=== PATIENT | female | born 1995 | race Hispanic/Latino ===

== ENCOUNTER 2023-12-03 03:32 | Emergency (ER) | payer SELFPAY ==
[2023-12-03] MEDS ORDERED: DIPHENHYDRAMINE 50 MG/ML VIAL ONE (03:46)
[2023-12-03] MEDS ORDERED: METOCLOPRAMIDE 10 MG/2mL INJ ONE (03:46)
[2023-12-03] MEDS ORDERED: ACETAMINOPHEN 500 MG TAB ONE (03:46)
[2023-12-03] MEDS ORDERED: NA CHLORIDE 0.9% 1,000 ML ONE (03:46)
[2023-12-03 04:25] LABS: Absolute Eosinophils 0.1 K/uL (0-0.5); Absolute Lymphocytes (CBC) 3.8 K/uL (0.7-4.9); Absolute Monocytes 0.9 K/uL (0.1-1.3); Absolute Neutrophil 8.5 K/uL (1.8-8.0); Basophils % 0.2 % (0-1.3); Eosinophils % 0.8 % (0-4.4); Hematocrit 41.4 % (36.0-45.0); Hemoglobin 13.6 g/dL (12.0-15.0); Lymphocytes % 28.5 % (15.3-44.8); MCH 28.3 pg (27.0-35.0); MCHC 32.8 g/dL (32.0-36.0); MCV 86.4 fL (80-100); Monocytes % 7.1 % (3.3-12.3); Neutrophils % 63.4 % (41.7-73.7); Platelets 413 thou/uL (152-406); RBC Red Blood Cell Count 4.79 M/uL (3.86-4.86); Red Cell Distribution Width 13.8 % (12.1-15.2)
[2023-12-03 04:58] LABS: Albumin 4.1 g/dL (3.4-5.0); Alkaline Phosphatase 80 U/L (45-117); Anion Gap 11.2 mEq/L (5.0-15.0); BUN Blood Urea Nitrogen 13 mg/dL (7-18); Bicarbonate 21 mEq/L (21-32); Bilirubin Total 0.3 mg/dL (0.2-1.0); Creatine Phosphokinase 61 U/L (26-192); Globulin 4.3 g/dL (2.3-3.5); Glomerular Filtration Rate 103 ml/min (=/>90); Glucose Level 149 mg/dL (74-106); Potassium 3.2 mEq/L (3.5-5.1); Protein, Total 8.4 g/dL (6.4-8.2); Sodium Level 136 mEq/L (136-145); Troponin High Sensitivity 3.7 pg/mL (<58.9)
[2023-12-03 05:01] LABS: ALT/SGPT < 14 U/L (13-56); AST/SGOT < 10 U/L (15-37); Bilirubin Direct < 0.2 mg/dL (0-0.2); Bilirubin Indirect, Calculated 0.1 mg/dL (0.2-0.8)
--- NOTE | 2023-12-03 05:07 | EDPHYS ---
Physician Documentation [facility] Name: Rhoda Richards Age: 28 yrs Sex: Female : 1995 Arrival Date: 12/03/2023 Time: 03:32 Bed 6 Private MD: ED Physician Sandeep Radford HPI: 12/02 03:53 This 28 yrs old Female presents to ER via EMS with complaints of Palpitations, rt Headache, Chest Pain. 03:53 Patient presents to the ED with reported 2 hours of a fast heart rate. The patient rt states that she feels dizzy, reports a migraine to the left side of her head. She does have history of migraines. Denies chest pain, difficulty breathing. Denies other acute complaints, symptoms are moderate in severity, no other aggravating or alleviating factors.. 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 Flu vaccine is not up to date. - Infectious Disease History:: Denies. - Social history:: Smoking status: Patient denies any tobacco usage or history of. Patient/guardian denies using alcohol, street drugs. - Family history:: not pertinent. ROS: 03:53 Constitutional: Negative for fever, chills, and weight loss, Respiratory: Negative for rt shortness of breath, cough, wheezing, and pleuritic chest pain, Abdomen/GI: Negative for abdominal pain, nausea, vomiting, diarrhea, and constipation, MS/Extremity: Negative for injury and deformity, Skin: Negative for injury, rash, and discoloration, 03:53 Cardiovascular: Positive for palpitations, Negative for chest pain, 03:53 Neuro: Positive for dizziness, headache, Exam: 03:53 Constitutional: This is a well developed, well nourished patient who is awake, alert, rt and in no acute distress. Head/Face: Normocephalic, atraumatic. Chest/axilla: Normal chest wall appearance and motion. Nontender with no deformity. No lesions are appreciated. Cardiovascular: Regular rate and rhythm with a normal S1 and S2. No gallops, murmurs, or rubs. Normal PMI, no JVD. No pulse deficits. Respiratory: Lungs have equal breath sounds bilaterally, clear to auscultation and percussion. No rales, rhonchi or wheezes noted. No increased work of breathing, no retractions or nasal flaring. Abdomen/GI: Soft, non-tender, with normal bowel sounds. No distension or tympany. No guarding or rebound. No evidence of tenderness throughout. Skin: Warm, dry with normal turgor. Normal color with no rashes, no lesions, and no evidence of cellulitis. MS/ Extremity: Pulses equal, no cyanosis. Neurovascular intact. Full, normal range of motion. Neuro: Awake and alert, GCS 15, oriented to person, place, time, and situation. Cranial nerves II-XII grossly intact. Motor strength 5/5 in all extremities. Sensory grossly intact. Cerebellar exam normal. Normal gait. 03:53 ECG was reviewed by the Attending Physician. Vital Signs: 03:35 BP 128 / 85; Pulse 117; Resp 18 S; Temp 98.2(O); Pulse Ox 99% on R/A; Weight 79.38 kg lg3 (R); Height 5 ft. 3 in. (R); 04:44 BP 121 / 75; Pulse 99; Resp 18; Pulse Ox 99% ; rv 05:02 Pulse 85; rv 05:12 BP 113 / 68; Pulse 86; Resp 18; Temp 98; Pulse Ox 99% on R/A; rv 03:35 Body Mass Index 31.00 (79.38 kg, 160.02 cm) lg3 MDM: 03:35 Patient medically screened. rt 05:07 Data reviewed: vital signs, nurses notes, lab test result(s), EKG, radiologic studies. rt Consideration of Admission/Observation Escalation of care including admission/observation considered. Tachycardia is improving to the 80s, patient's symptoms have significantly improved following IV fluids, headache cocktail. Is noted that she has a slight elevation of her white blood count, she is afebrile, has no signs or symptoms suggestive of infection at this time, suspect demargination as compared to infectious etiology. Return precautions for worsening symptoms were discussed with patient.. Counseling: I had a detailed discussion with the patient and/or guardian regarding the historical points, exam findings, and any diagnostic results supporting the discharge/admit diagnosis, lab results, radiology results, the need for outpatient follow up, to return to the emergency department if symptoms worsen or persist or if there are any questions or concerns that arise at home. Response to treatment: the patient's symptoms have markedly improved after treatment. 12/02 03:36 Order name: Basic Metabolic Panel; Complete Time: 05:01 rt 12/02 03:36 Order name: CBC with Diff; Complete Time: 05:01 rt 12/02 03:36 Order name: D-Dimer; Complete Time: 05:01 rt 12/02 03:36 Order name: LFT's; Complete Time: 05:01 rt 12/02 03:36 Order name: Magnesium; Complete Time: 05:01 rt 12/02 03:36 Order name: Troponin HS; Complete Time: 05:01 rt 12/02 03:36 Order name: TSH; Complete Time: 05:01 rt 12/02 03:36 Order name: CPK; Complete Time: 05:01 rt 12/02 03:36 Order name: XRAY Chest (1 view) rt 12/02 03:36 Order name: EKG; Complete Time: 03:37 rt 12/02 03:36 Order name: Cardiac monitoring; Complete Time: 03:40 rt 12/02 03:36 Order name: EKG - Nurse/Tech; Complete Time: 03:40 rt 12/02 03:36 Order name: IV Saline Lock; Complete Time: 03:40 rt 12/02 03:36 Order name: Labs collected and sent; Complete Time: 03:40 rt 12/02 03:36 Order name: O2 Per Protocol; Complete Time: 03:40 rt 12/02 03:36 Order name: O2 Sat Monitoring; Complete Time: 03:40 rt EC:53 Rate is 120 beats/min. Rhythm is regular, Sinus tachycardia with No ectopy. QRS [place] is rt Normal. [place] interval is normal. QRS interval is normal. QT interval is normal. No Q waves. T waves are Normal. No ST changes noted. Interpreted by me. Administered Medications: 03:46 Drug: diphenhydrAMINE IVP 25 mg IVP once Route: IVP; Site: right antecubital; rv 05:02 Follow up: Response: No adverse reaction; Marked relief of symptoms rv 03:46 Drug: Acetaminophen PO 1000 mg PO once Route: PO; rv 05:02 Follow up: Response: No adverse reaction; Marked relief of symptoms rv 03:47 Drug: NS 0.9% IV 1000 ml IV at 1 bolus Per protocol; 1000 mL bolus Route: IV; Rate: 1 rv bolus; Site: right antecubital; 05:02 Follow up: IV Status: Completed infusion; IV Intake: 1000ml rv 03:47 Drug: metoCLOPramide IVP 10 mg IVP once; over 1 to 2 minutes Route: IVP; Site: right rv antecubital; 05:02 Follow up: Response: No adverse reaction; Marked relief of symptoms rv Disposition Summary: 12/03/23 05:06 Discharge Ordered Notes: Location: Home rt Problem: new rt Symptoms: have improved rt Condition: Stable rt Diagnosis - Headache rt - Sinus tachycardia rt Followup: rt - With: Private Physician - When: 2 - 3 days - Reason: Followup: rt - With: Emergency Department - When: As needed - Reason: Worsening of condition Discharge Instructions: - Discharge Summary Sheet rt - General Headache Without Cause rt - Sinus Tachycardia rt Forms: - Medication Reconciliation Form rt - Antibiotic Education rt - Prescription Opioid Use rt - Patient Portal Instructions rt - Leadership Thank You Letter rt Signatures: Dispatcher [employer] EDLeo Sagastume RN RN rv Able, Lacie, RN RN lg3 Sandeep Radford MD MD rt Corrections: (The following items were deleted from the chart) 03:37 03:37 BASIC METABOLIC PANEL+C.LAB.BRZ ordered. EDMS EDMS 03:37 03:37 CBC+H.LAB.BRZ ordered. EDMS EDMS 03:37 03:37 D-DIMER+COAG.LAB.BRZ ordered. EDMS EDMS 03:37 03:37 HEPATIC FUNCTION+C.LAB.BRZ ordered. EDMS EDMS 03:37 03:37 MAGNESIUM+C.LAB.BRZ ordered. EDMS EDMS 03:37 03:37 Troponin High Sensitivity+C.LAB.BRZ ordered. EDMS EDMS 03:37 03:37 THYROID STIMULAT HORMONE+C.LAB.BRZ ordered. EDMS EDMS 03:37 03:37 CREATINE PHOSPHOKINASE+C.LAB.BRZ ordered. EDMS EDMS
--- NOTE | 2023-12-03 05:07 | ER ---
Nurse's Notes [facility] Name: Rhoda Richards Age: 28 yrs Sex: Female : 1995 Arrival Date: 12/03/2023 Time: 03:32 Bed 6 Private MD: Diagnosis: Headache;Sinus tachycardia Presentation: 12/02 03:35 Chief complaint: Patient states: increased HR, migraine, dizziness, weakness, blurry lg3 vision X2 HR. Coronavirus screen: Client denies travel out of the [place] in the last 14 days. At this time, the client does not indicate any symptoms associated with coronavirus-19. Ebola Screen: No symptoms or risks identified at this time. Initial Sepsis Screen: Does the patient meet any 2 criteria? No. Patient's initial sepsis screen is negative. Does the patient have a suspected source of infection? No. Patient's initial sepsis screen is negative. Risk Assessment: Do you want to hurt yourself or someone else? Patient reports no desire to harm self or others. Onset of symptoms was December 03, 2023. 03:35 Method Of Arrival: EMS: [facility] lg3 03:35 Acuity: ALLI 3 lg3 Triage Assessment: 03:37 General: Appears in no apparent distress. uncomfortable, Behavior is calm, cooperative. lg3 Pain: Complains of pain in head Pain does not radiate. EENT: Reports blurred vision. Neuro: No deficits noted. Choi Agitation-Sedation Scale (RASS): 0 - Alert and Calm Level of Consciousness is awake, alert, obeys commands, Oriented to person, place, time, situation, Reports blurred vision dizziness, headache weakness. Cardiovascular: Denies chest pain, shortness of breath, Capillary refill < 3 seconds Clubbing of nail beds is absent JVD is absent Patient's skin is warm and dry. Rhythm is sinus tachycardia. Respiratory: No deficits noted. Airway is patent Respiratory effort is even, unlabored, Respiratory pattern is regular, symmetrical, Breath sounds are clear bilaterally. GI: No deficits noted. No signs and/or symptoms were reported involving the gastrointestinal system. : No deficits noted. No signs and/or symptoms were reported regarding the genitourinary system. Derm: No deficits noted. No signs and/or symptoms reported regarding the dermatologic system. Skin is intact, is healthy with good turgor, Skin is dry, Skin is normal, Skin temperature is warm. Musculoskeletal: No deficits noted. No signs and/or symptoms reported regarding the musculoskeletal system. Circulation, motion, and sensation intact. Range of motion: intact in all extremities. 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 Flu vaccine is not up to date. - Infectious Disease History:: Denies. - Social history:: Smoking status: Patient denies any tobacco usage or history of. Patient/guardian denies using alcohol, street drugs. - Family history:: not pertinent. Screenin:38 [facility] ED Fall Risk Assessment (Adult) History of falling in the last 3 months, lg3 including since admission No falls in past 3 months (0 pts) Confusion or Disorientation No (0 pts) Intoxicated or Sedated No (0 pts) Impaired Gait No (0 pts) Mobility Assist Device Used No (0 pt) Altered Elimination No (0 pt) Score/Fall Risk Level 0 - 2 = Low Risk Oriented to surroundings, Maintained a safe environment, Educated pt \T\ family on fall prevention, incl call for assistance when getting out of bed, Assessed \T\ reinforced patient's understanding of fall precautions. Abuse screen: Denies threats or abuse. Denies injuries from another. Nutritional screening: No deficits noted. Tuberculosis screening: No symptoms or risk factors identified. Assessment: 03:38 General: see triage assessment. lg3 Vital Signs: 03:35 BP 128 / 85; Pulse 117; Resp 18 S; Temp 98.2(O); Pulse Ox 99% on R/A; Weight 79.38 kg lg3 (R); Height 5 ft. 3 in. (R); 04:44 BP 121 / 75; Pulse 99; Resp 18; Pulse Ox 99% ; rv 05:02 Pulse 85; rv 05:12 BP 113 / 68; Pulse 86; Resp 18; Temp 98; Pulse Ox 99% on R/A; rv 03:35 Body Mass Index 31.00 (79.38 kg, 160.02 cm) lg3 ED Course: 03:34 Patient arrived in ED. rv 03:35 Alyx Sabillon, RN is Primary Nurse. lg3 03:35 Sandeep Radford MD is Attending Physician. rt 03:36 Triage completed. lg3 03:37 Arm band placed on right wrist. lg3 03:38 Allergy band placed. Placed in gown. Bed in low position. Call light in reach. Side lg3 rails up X 1. Client placed on continuous cardiac and pulse oximetry monitoring. NIBP monitoring applied. case monitor on. Door closed. Noise minimized. Warm blanket given. Pillow given. 03:46 Initial lab(s) drawn, by me, sent to lab. EKG done, by ED staff, reviewed by Sandeep Radford MD. Inserted saline lock: 20 gauge in right antecubital area, using aseptic technique. Blood collected. 03:46 Basic Metabolic Panel Sent. rv 03:46 CBC with Diff Sent. rv 03:46 D-Dimer Sent. rv 03:46 LFT's Sent. rv 03:46 Magnesium Sent. rv 03:46 Troponin HS Sent. rv 03:46 CPK Sent. rv 03:46 TSH Sent. rv 03:47 No provider procedures requiring assistance completed. rv 04:17 XRAY Chest (1 view) In Process Unspecified. EDMS 05:13 IV discontinued, intact, bleeding controlled, No redness/swelling at site. Pressure rv dressing applied. Administered Medications: 03:46 Drug: diphenhydrAMINE IVP 25 mg IVP once Route: IVP; Site: right antecubital; rv 05:02 Follow up: Response: No adverse reaction; Marked relief of symptoms rv 03:46 Drug: Acetaminophen PO 1000 mg PO once Route: PO; rv 05:02 Follow up: Response: No adverse reaction; Marked relief of symptoms rv 03:47 Drug: NS 0.9% IV 1000 ml IV at 1 bolus Per protocol; 1000 mL bolus Route: IV; Rate: 1 rv bolus; Site: right antecubital; 05:02 Follow up: IV Status: Completed infusion; IV Intake: 1000ml rv 03:47 Drug: metoCLOPramide IVP 10 mg IVP once; over 1 to 2 minutes Route: IVP; Site: right rv antecubital; 05:02 Follow up: Response: No adverse reaction; Marked relief of symptoms rv Medication: 03:46 VIS not applicable for this client. rv Intake: 05:02 IV: 1000ml; Total: 1000ml. rv Outcome: 05:06 Discharge ordered by . rt 05:13 Discharged to home ambulatory, rv 05:13 Condition: good 05:13 Discharge instructions given to patient, Instructed on discharge instructions, follow up and referral plans. Demonstrated understanding of instructions, follow-up care, 05:13 Patient left the ED. rv Signatures: Dispatcher [employer] Leo Velez RN RN rv Alyx Sabillon RN RN lg3 Sandeep Radford MD MD rt
[2023-12-03 06:00] VITALS: BP 113/68; TEMP 98; O2SAT 99
--- NOTE | 2023-12-05 11:17 | RAD REPORT ---
EXAM DESCRIPTION: Chest single view CLINICAL HISTORY: Female, 28 years old, tachycardia TECHNIQUE: 1 view COMPARISON: None. FINDINGS: SUPPORT DEVICES: Overlying leads. LUNGS/PLEURA: No consolidation, pleural effusion, or pneumothorax. Small right nodule overlying the r ight hemidiaphragm, indeterminate but of doubtful clinical significance. HEART/MEDIASTINUM: Normal size and configuration. OTHER: No acute osseous findings. IMPRESSION: No acute cardiopulmonary findings. Electronically signed by: Austen Rondon MD 12/03/2023 04:38 AM CDT Due to temporary technical issues with the PACS/Fluency reporting system, reports are being signed by the in house radiologist without review as a courtesy to ensure prompt reporting. The interpreting r adiologist is fully responsible for the content of the report.
--- NOTE | 2023-12-05 13:24 | EKG ---
Test Date: 2023-12-03 Test Time: 03:40:00 Site Worker: RV MEASUREMENT RESULTS: Intervals: Rate: 120 SD: 146 QRSD: 78 QT: 324 QTc: 457 [place]: P: 65 SD: 146 QRS: 75 T: 59 INTERPRETIVE STATEMENTS: Sinus tachycardia Otherwise normal ECG No previous ECG available for comparison Electronically Signed On 12-05-23 13:18:14 CDT by Brendan Ruvalcaba
== END 2023-12-03 05:13 | disposition home or self-care (01) ==
LOC: ER 03:32
DX: R00.0 Tachycardia, unspecified (principal); R51.9 Headache, unspecified
CPT/HCPCS: 36415; 71045; 80048; 80076; 82550; 83735; 84443; 84484; 85025; 85379; 93005; 96361; 96374; 96375; 99285; J1200; J2765; J7030